=== PATIENT | female | born 1975 | race Caucasian/White ===

== ENCOUNTER 2021-12-16 11:02 | Emergency (ER) | payer SELFPAY ==
[~2021-12-16] VITALS: Ht 157.5 cm; Wt 64.9 kg
[2021-12-16 11:15] VITALS: BP 100/53
--- NOTE | 2021-12-16 11:19 | NUR ---
PT TO IBIS Walker, DR. SPIVEY WITH PT FOR FURTHER EVALUATION.
[2021-12-16] MEDS ORDERED: KETOROLAC 30 MG/ML VIAL IM ONE (11:25)
[2021-12-16 11:42] LABS: BASOPHILS # (AUTO) 0.1 K/uL (0.00-0.22); BASOPHILS % (AUTO) 0.8 % (0.0-2.0); EOSINOPHILS # (AUTO) 0.2 K/uL (0-0.4); EOSINOPHILS % (AUTO) 3.8 % (0.0-4.0); HEMATOCRIT 34.1 % (36-48); HEMOGLOBIN 11.5 g/dL (12.0-16.0); LYMPHOCYTES # (AUTO) 1.6 K/uL (2.5-16.5); LYMPHOCYTES % (AUTO) 25.5 % (20.5-51.1); MEAN CORPUSCULAR HEMOGLOBIN 31 pg (27-31); MEAN CORPUSCULAR HGB CONC 34 g/dL (33-37); MEAN CORPUSCULAR VOLUME 91.4 fL (80-94); MONOCYTES # (AUTO) 0.4 K/uL (0.8-1.0); MONOCYTES % (AUTO) 5.8 % (1.7-9.3); NEUTROPHILS # (AUTO) 4.1 K/uL (1.8-7.7); NEUTROPHILS % (AUTO) 64.1 % (42.2-75.2); PLATELET COUNT (AUTO) 271 K/uL (140-450); RED BLOOD CELL COUNT(AUTO) 3.73 MIL/uL (4.20-5.40); RED CELL DISTRIBUTION WIDTH 13.1 % (11.6-13.7); WHITE BLOOD COUNT (AUTO) 6.4 K/uL (4.8-10.8)
[2021-12-16] MEDS ORDERED: ONDA-188 PO (13:15)
[2021-12-16] MEDS ORDERED: ACET-8386 PO (13:15)
[2021-12-16 13:37] VITALS: BP 100/53
--- NOTE | 2021-12-16 13:37 | NUR ---
Patient discharged with v/s stable. Written and verbal after care instructions given PELVIC PAIN, ABD PAIN and explained. Patient alert, oriented and verbalized understanding of instructions. Ambulatory with steady gait. All questions addressed prior to discharge. ID band removed. Patient advised to follow up with PMD. Rx of TYNENOL, ZOFRAN, NORCO given. Patient educated on indication of medication including possible reaction and side effects. Opportunity to ask questions provided and answered.
== END 2021-12-16 13:37 | disposition home or self-care (01) ==
LOC: MED 11:02
DX: N93.8 Other specified abnormal uterine and vaginal bleeding (principal); F17.200 Nicotine dependence, unspecified, uncomplicated; Z71.6 Tobacco abuse counseling; Z79.899 Other long term (current) drug therapy; Z98.890 Other specified postprocedural states
CPT/HCPCS: 36415; 76830; 81002; 81025; 85025; 93976; 96372; 99284; J1885